=== PATIENT | female | born 1970 | race Caucasian/White ===

== ENCOUNTER 2020-04-04 21:12 | Emergency (ER) | payer SELFPAY ==
[~2020-04-04] VITALS: Ht 152.4 cm; Wt 58.0 kg
[2020-04-04] MEDS ORDERED: NAPR250T6 PO (21:48)
[2020-04-04 22:14] LABS: ANION GAP 6 mmol/L (5-15); CALCIUM 8.5 mg/dL (8.5-10.1); CHLORIDE 109 mmol/L (98-107); CREATININE 0.71 mg/dL (0.55-1.02)
[2020-04-04 22:15] LABS: ALANINE AMINOTRANSFERASE 179 U/L (12-78); ALBUMIN 2.8 g/dL (3.4-5.0)
[2020-04-04 22:19] LABS: ALKALINE PHOSPHATASE 198 U/L (45-117); BILIRUBIN,TOTAL 0.9 mg/dL (0.2-1.0); TOTAL PROTEIN 6.7 g/dL (6.4-8.2); TROPONIN I < 0.015 ng/mL (0.000-0.045)
[2020-04-04 22:57] LABS: MEAN CORPUSCULAR HEMOGLOBIN 29.8 pg (27.0-34.8); MEAN CORPUSCULAR HGB CONC 33.1 g/dL (32.4-35.8); MEAN PLATELET VOLUME 7.8 fL (7.4-10.4); PLATELET COUNT 444 x10^3/uL (130-400); RED BLOOD COUNT 2.73 x10^6/uL (3.82-5.3); RED CELL DISTRIBUTION WIDTH 14.1 % (9.6-15.2)
[2020-04-04 22:59] LABS: BASOPHILS # (AUTO) 0.13 x10^3/uL (0-0.1); BASOPHILS % (AUTO) 1 % (0-1); EOSINOPHILS % (AUTO) 2 % (1-7); LYMPHOCYTES # (AUTO) 2.12 x10^3/uL (1-3.4); LYMPHOCYTES % (AUTO) 21 % (22-44); MD SCAN; MONOCYTES # (AUTO) 0.97 x10^3/uL (0.2-0.8); MONOCYTES % (AUTO) 10 % (2-9); NEUTROPHILS # (AUTO) 6.86 x10^3/uL (1.8-6.8); NEUTROPHILS % (AUTO) 67 % (42-75)
--- NOTE | 2020-04-04 23:13 | NUR ---
CT DELAY, PT NEED IV.
--- NOTE | 2020-04-04 23:44 | NUR ---
PT VERY DIFFICULT IV STICK. IV PLACED VIA SONO PER KENYA NASCIMENTO. PROVIDER INFORMED
--- NOTE | 2020-04-05 00:12 | NUR ---
PT CAME TO CT, IV FAILED SALINE TEST.
--- NOTE | 2020-04-05 00:25 | NUR ---
PT IV WAS INFILTRATED AND CT WAS UNABLE TO GET CTA COMPELTED. SPOKE WITH PATIENT AND SHE IS REFUSING ANY MORE IV ATTEMPTS AND CT AT THIS TIME. PROVIDER INFORMED.
[2020-04-05 01:33] VITALS: BP 146/89
== END 2020-04-05 02:06 | disposition left against medical advice (07) ==
LOC: ED 04-05 00:42
DX: R00.0 Tachycardia, unspecified (principal); R06.00 Dyspnea, unspecified; R94.5 Abnormal results of liver function studies
CPT/HCPCS: 36415; 71045; 80053; 84484; 85025; 93005; 99285

== ENCOUNTER 2020-04-14 18:26 | Emergency (ER) | payer MEDICAID, OTHER ==
[~2020-04-14] VITALS: Ht 152.4 cm; Wt 60.0 kg
[~2020-04-14 18:26] MED LIST: NAPR250T6 PO
[2020-04-14 18:28] VITALS: BP 143/71
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
--- NOTE | 2020-04-14 18:51 | NUR ---
REPORT TO HARMAN NASCIMENTO
== END 2020-04-14 19:17 | disposition home or self-care (01) ==
LOC: ED 19:00
DX: S31.811D Laceration without foreign body of right buttock, subsequent encounter (principal); X58.XXXD Exposure to other specified factors, subsequent encounter; F17.200 Nicotine dependence, unspecified, uncomplicated
CPT/HCPCS: 99281